=== PATIENT | male | born 1980 | race Caucasian/White ===

== ENCOUNTER 2024-03-19 08:30 | Outpatient (RCR) | payer OTHER, SELFPAY ==
--- NOTE | 2024-03-13 08:19 | PT.OIERPT ---
PT OP Initial Eval Patient Information Outpatient Physical Therapy Treatment Date: 03/13/24 Visit Reasons: RT index finger amputation Medical Diagnosis: s68.110a Treatment Dx #1: Right 2nd Digit Mobility Deficits Treatment Dx #2: Right Hand Weakness Start of Care: 03/13/24 Date of Onset: 01/01/24 Smoking Status Smoking Status: Current every day smoker (yes) Cessation Counseling Provided: KAYLIN was advised that quitting smoking is the single most important factor to protect the health of themselves and their family. Discussed the benefits of quitting smoking with patient. Encouraged patient to quit smoking and provided Cessation assistance materials and resources. Tobacco Use: Cigarette Years smoked: 20 Are you interested in quitting?: No Would you like additional Smoking Cessation Counseling?: No Initial Assessment Subjective: Pt is a 43 y/o male reports of right index amputation s/p work injury. Pt still has pain 2/10 with sensitivity. Pt has limitation with gripping, lifting, chores, self care, cooking cleaning, and work duties. 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 Pt will benefit from physical therapy to increase ROM, strength, and work on hand dexterity. Short Term and Skilled Nursing Goals 1) Increase right hand mobility WFL in 8 wks to be able to return back to work 2) Decrease hand pain to 1/10 in 8 wks to be able to perform chores 3) Increase wrist MMTs grossly to 4-/5 in 8 wks to be able to perform recreational activities 4) Indep with HEP Treatment Plan 1) Manual Therapy 2) Therapeutic Activities 3) Therapeutic Exercises 4) Modalities (ice, heat) Frequency and Duration: 2 x wk for 8 wks Certification Dates: 03/13/24 to 06/11/24 Procedure Charges OP PT Eval Mod Complex 30 minutes: Yes
--- NOTE | 2024-03-17 08:44 | PT.ODAYNRPT ---
PT Outpatient Daily Note OP Daily Note Outpatient Physical Therapy Treatment Date: 03/17/24 Visit Reasons: RT index finger amputation Subjective: Pt reports he is uses a gripper for hand strength at home. Objective: Please see flow sheet for ther ex list. Assessment: Performed PROM and scar mobs to residual finger of R 2nd digit, minimal TTP. Plan: Continue with pOC. Length of Time (minutes) of Treatment: 30 Minutes Procedure Charges Therapeutic Exercise 30 minutes: Yes
--- NOTE | 2024-03-19 09:06 | PT.ODAYNRPT ---
PT Outpatient Daily Note OP Daily Note Outpatient Physical Therapy Treatment Date: 03/19/24 Visit Reasons: RT index finger amputation Subjective: No new complaints. Objective: Please see flow sheet for ther ex list. Assessment: Progression of functional pinching performed with good tolerance. Plan: Continue with pOC. Length of Time (minutes) of Treatment: 30 Minutes Procedure Charges Therapeutic Exercise 30 minutes: Yes
== END 2024-03-20 23:59 | disposition home or self-care (01) ==
LOC: CPTX 08:30
DX: M79.644 Pain in right finger(s) (principal); R53.1 Weakness; S68.110D Complete traumatic metacarpophalangeal amputation of right index finger, subsequent encounter; X58.XXXD Exposure to other specified factors, subsequent encounter; Z71.6 Tobacco abuse counseling; F17.210 Nicotine dependence, cigarettes, uncomplicated
CPT/HCPCS: 97110; 97162

== ENCOUNTER 2024-04-14 15:00 | Outpatient (RCR) | payer OTHER, SELFPAY ==
--- NOTE | 2024-03-24 09:15 | PT.ODAYNRPT ---
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 Pt fatigue towards end of PT session Plan: Continue with PT Length of Time (minutes) of Treatment: 30 Minutes Procedure Charges Therapeutic Exercise 30 minutes: Yes
--- NOTE | 2024-03-26 09:32 | PT.ODAYNRPT ---
PT Outpatient Daily Note OP Daily Note Outpatient Physical Therapy Treatment Date: 03/26/24 Visit Reasons: RT finger index amputation Subjective: Pt's feeling good. Pt wants to return back to work soon. Objective: Please see flow chart for list of ther ex performed Assessment: progressing with finger flexion AROM and continues to tolerate increase hand resistance Plan: Continue with PT Length of Time (minutes) of Treatment: 30 Minutes Procedure Charges Therapeutic Exercise 30 minutes: Yes
--- NOTE | 2024-03-31 09:58 | PT.ODAYNRPT ---
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 Objective: Please see flow sheet for ther ex list. Assessment: Focus on improving ROM and functional strength in preparation for pt to return to work. Plan: Continue with POC. Length of Time (minutes) of Treatment: 30 Minutes Procedure Charges Therapeutic Exercise 30 minutes: Yes
--- NOTE | 2024-04-02 10:19 | PT.ODAYNRPT ---
PT Outpatient Daily Note OP Daily Note Outpatient Physical Therapy Treatment Date: 04/02/24 Visit Reasons: RT finger index amputation Subjective: Pt's hand feels good. Pt wants to return back to work. Pt will be seeing provider tomorrow. Objective: Please see flow chart for list of ther ex performed Assessment: progressing with hand resistance with minimal pain reported Plan: Continue with PT Length of Time (minutes) of Treatment: 30 Minutes Procedure Charges Therapeutic Exercise 30 minutes: Yes
--- NOTE | 2024-04-07 16:09 | PT.ODAYNRPT ---
PT Outpatient Daily Note OP Daily Note Outpatient Physical Therapy Treatment Date: 04/07/24 Visit Reasons: RT finger index amputation Subjective: Pt release back to work. 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 Objective: Please see flow chart for list of ther ex performed Assessment: tolerate exercises with minimal pain Plan: Continue with PT Length of Time (minutes) of Treatment: 30 Minutes Procedure Charges Therapeutic Exercise 30 minutes: Yes
--- NOTE | 2024-04-14 16:01 | PT.ODAYNRPT ---
PT Outpatient Daily Note OP Daily Note Outpatient Physical Therapy Treatment Date: 04/14/24 Visit Reasons: RT finger index amputation Subjective: Pt reports index finger is improving, returned to work. Pt mentioned he is currently waiting on a protector for residual digit. Objective: Please see flow sheet for ther ex list. Assessment: Interventions completed with no complaints. Pt progressing and has returned to work. Plan: Continue with pOC. Length of Time (minutes) of Treatment: 30 Minutes Procedure Charges Therapeutic Exercise 30 minutes: Yes
== END 2024-04-17 23:59 | disposition home or self-care (01) ==
LOC: CPTX 15:00
DX: M79.644 Pain in right finger(s) (principal); R53.1 Weakness; S68.110D Complete traumatic metacarpophalangeal amputation of right index finger, subsequent encounter; X58.XXXD Exposure to other specified factors, subsequent encounter
CPT/HCPCS: 97110

== ENCOUNTER 2024-04-30 15:30 | Outpatient (RCR) | payer OTHER, SELFPAY ==
--- NOTE | 2024-04-21 15:51 | PT.ODAYNRPT ---
PT Outpatient Daily Note OP Daily Note Outpatient Physical Therapy Treatment Date: 04/21/24 Visit Reasons: right index finger amputation Subjective: Pt's hand is better. Pt has been doing okay at work. Objective: Please see flow chart for list of ther ex performed Assessment: tolerate progression with hand resistance exercises. Plan: Continue with PT Length of Time (minutes) of Treatment: 30 Minutes Procedure Charges Therapeutic Exercise 30 minutes: Yes
--- NOTE | 2024-04-28 15:23 | PT.ODAYNRPT ---
PT Outpatient Daily Note OP Daily Note Outpatient Physical Therapy Treatment Date: 04/28/24 Visit Reasons: right index finger amputation Subjective: Pt feels good and recently seen provider where no concerns reported about his finger. Objective: Please see flow chart for list of ther ex performed Assessment: progressing with all hand exercises with good tolerance. Length of Time (minutes) of Treatment: 30 Minutes Procedure Charges Therapeutic Exercise 30 minutes: Yes
--- NOTE | 2024-04-30 16:05 | PT.ODS1RPT ---
PT OP Progress/Discharge Note Date of Service: 04/30/24 Progress Note/DC Note Progress Note/Discharge Note: DC Note Patient Information Visit Reasons: right index finger amputation Medical Diagnosis: s68.110a Treatment Dx #1: Right 2nd Digit Mobility Deficits Service Discharge Date: 04/30/24 Status Subjective: Pt has return back to work for a few weeks now. Pt denies of limitation and has been able to chief human resources officer, lift, perform chores, self care, and work duties. Objective: Right Wrist AROM: all motions are WNL Right 2nd Digit AROM: all motions are WFL Right Wrist MMTs: grossly 4/5 Assessment: Pt demonstrate functional right hand mobility and strength allowing him to resume ADLs, work duties, gripping, lifting, and recreational activities with no further limitations. Pt has met set goals in therapy and will no longer benefit from physical therapy. Pt was instructed on HEP last session and educated to continue exercises to maintain overall mobility. Pt performed all exercises safely, thank you for your referrals. Plan: D/C home with HEP and follow up with MD [id number] Procedure Charges Therapeutic Exercise 15 minutes: Yes Self Care/Home Mgmt 15 minutes: Yes
== END 2024-05-18 23:59 | disposition home or self-care (01) ==
LOC: CPTX 15:30
DX: M79.644 Pain in right finger(s) (principal); R53.1 Weakness; S68.110D Complete traumatic metacarpophalangeal amputation of right index finger, subsequent encounter; W45.8XXD Other foreign body or object entering through skin, subsequent encounter
CPT/HCPCS: 97110; 97535

== ENCOUNTER → 2024-05-08 | Outpatient (CLI) | payer OTHER, SELFPAY ==
--- NOTE | 2024-05-08 15:21 | XR_ITS ---
Examination: Hand, right 3 views Technique: Hand AP, oblique, lateral 3 views Date and time of exam: May 08, 2024 1525 hours INDICATIONS: Injury to the hand May 03, 2024 with secondary degenerative pain FINDINGS: Amputation at the level of the proximal aspect middle phalanx second digit No acute fracture Tiny old bone density at the amputation site No foreign body IMPRESSION: No acute fracture
== END | disposition home or self-care (01) ==
DX: S68.110A Complete traumatic metacarpophalangeal amputation of right index finger, initial encounter (principal); X58.XXXA Exposure to other specified factors, initial encounter
CPT/HCPCS: 73130